=== PATIENT | female | born 1975 | race Caucasian/White ===

== ENCOUNTER → 2024-10-03 07:14 | Outpatient (REF) | payer BC, SELFPAY | LOC: HWRAD 07:14 | PROVIDERS: ATTENDING PHYSICIAN Physician Assistant Medical | DX: D48.9 Neoplasm of uncertain behavior, unspecified (principal) | CPT/HCPCS: 76604 ==

== ENCOUNTER 2024-11-10 06:01 | Day surgery (SDC) | payer BC, SELFPAY ==
[2024-11-10 06:21] VITALS: BP 119/78
[2024-11-10 06:22] VITALS: BMI 27.2
[2024-11-10 06:23] VITALS: BMI 27.2
[2024-11-10] MEDS: TYLENOL 1000 MG PO (06:27)
[2024-11-10] MEDS: NORMOSOL-R/PLASMALYTE-A 1000 IV (06:42)
[2024-11-10] MEDS: HEPARIN 5000 UNITS SC (06:44)
[2024-11-10 07:51] VITALS: BP 133/75
[2024-11-10 08:01] VITALS: BP 91/77
--- NOTE | 2024-11-10 08:06 | OR.RPT ---
Addendum entered and electronically signed by Dagoberto Aguilera MD 11/10/24 09:48:
The assistance of Chin PARADA was required due to the complexity of the procedure. During the procedure she assisted with retraction, resection, and closure of the wound.
Original Note:
Operative Report
Operative Report
Primary Surgeon: Ale
Assisting: Chin PARADA
Pre-op Diagnosis: Back lipoma
Post-op Diagnosis: Same
Procedure Performed: Excision of back lipoma
Anesthesia Type: MAC local
Specimen / Cultures: Lipoma
Estimated Blood Loss: 2cc
Complications: None immediate
Operative Findings: 6cm x 6cm x 2cm lipoma overlying the muscle, benign appearing
Date of Surgery: 11/10/24
Indications: This 48F developed a symptomatic right upper back lipoma and excision was elected. The site was marked together with the patient in the preoperative area.
PROCEDURE: After informed consent was obtained, the patient was brought to the operative suite and placed left lateral decubitus on the operating table. The patient was sedated, prepped and draped in the usual sterile manner and an adequate local
anesthetic was administered using lidocaine 1% with epinephrine.
A full thickness elliptical incision was made over the mass with a #15 blade and carried down to the capsule with electrocautery. The lipoma was freed from surrounding structures with blunt dissection and electrocautery. The deep layer was gently
adherent to the muscle. The lipoma was totally freed and passed off the table as specimen in one piece. The wound was then irrigated with copious sterile saline, and hemostasis was obtained using electrocautery. The skin was approximated with 3-0
Vicryl deep dermal interrupted sutures and 4-0 monocryl suture in a subcuticular fashion. Topical skin glue was then applied. All surgical counts were reported as correct.
The patient tolerated the procedure well and was taken to the PACU in stable condition.
[2024-11-10 08:12] VITALS: BP 113/87
[2024-11-10 08:15] VITALS: BP 129/84
[2024-11-10 08:19] VITALS: BP 118/74
== END 2024-11-10 08:30 | disposition home or self-care (01) ==
LOC: SDS 06:01
PROVIDERS: ATTENDING PHYSICIAN Surgery
DX: D17.1 Benign lipomatous neoplasm of skin and subcutaneous tissue of trunk (principal)
CPT/HCPCS: 11406; 88304

== ENCOUNTER 2025-02-02 19:36 | Emergency (ER) | payer BC, SELFPAY ==
[2025-02-02 19:39] VITALS: BP 132/80
[2025-02-02 20:01] LABS: % Basophils 0.5 % (0-2); % Eosinophils 1.9 % (0-6); % Immature Granulocytes 0.2 % (0-0.5); % Lymphocytes 27.5 % (20.5-51.1); % Monocytes 6.9 % (1.7-9.3); Absolute Eosinophils 0.2 10^3/uL (0-0.7); Absolute Lymphocytes 2.3 10^3/uL (1.2-3.4); Absolute Monocytes 0.6 10^3/uL (0.1-0.6); Absolute Neutrophils 5.3 10^3/uL (1.4-6.5); Hematocrit 37.1 % (37.0-47.0); Hemoglobin 12.8 g/dL (12.0-16.0); Mean Corp Hgb Conc. 34.5 g/dL (33.0-37.0); Mean Corpuscular Hgb 29.8 pg (27.0-31.0); Mean Corpuscular Volume 86.5 fL (81.0-99.0); Mean Platelet Volume 9.8 fL (7.4-10.4); Nucleated Red Blood Cells % 0 %; Platelet Count 264 10^3/uL (130-400); Red Blood Cell Count 4.29 10^6/uL (4.20-5.40); Red Cell Dist. Width 12.4 % (11.5-14.5); White Blood Cell Count 8.4 10^3/uL (4.8-10.8)
[2025-02-02 20:13] LABS: HCG, Serum Qualitative Screen Negative
[2025-02-02 20:20] LABS: ALT (SGPT) 16 U/L (0-35); AST (SGOT) 20 U/L (14-36); Albumin 4.5 g/dl (3.5-5.0); Alkaline Phosphatase 63 U/L (38-126); Blood Urea Nitrogen 18 mg/dl (7-17); Calcium 9.3 mg/dl (8.4-10.2); Carbon Dioxide 25 mmol/L (22-30); Chloride 108 mmol/L (98-107); Glucose 108 mg/dl (70-99); Potassium 4.3 mmol/L (3.5-5.1); Sodium 139 mmol/L (135-145); Total Bilirubin 0.9 mg/dl (0.2-1.3); Total Protein 7.3 g/dl (6.3-8.2); eGFR > 60.00
--- NOTE | 2025-02-02 20:38 | ED.GENMED ---
History of Present Illness
General
Chief Complaint: Vaginal Bleeding
Source: patient
Exam Limitations: none
Time Seen by Provider: 02/02/25 20:37
History of Present Illness
History of Present Illness:
49yoF with no significant past medical history presenting via EMS for evaluation of vaginal bleeding. Patient started her menstrual period yesterday. Her periods are typically pretty light. She suddenly started to have heavy vaginal bleeding this
evening and blood through a tampon within an hour. She started to feel lightheaded and her heart rate spiked so she called EMS. Bleeding has now subsided. She changed her pad about 2 hours ago and pad is only about 1/3 saturated. Patient does
not take any blood thinners. Of note, patient was seen by her PCP yesterday for palpitations and elevated heart rate. She currently has a Holter monitor on and is scheduled to have an echocardiogram and stress test in 3 days.
Past History
Past History
ED Past Medical History: None
ED Past Surgical History: Gynecological
Social History
Tobacco: Non-smoker
Phy Exam
General Physical Exam
General Presentation: well appearing and no apparent distress
General Skin: warm and dry
General Habitus: normal
General Mental: alert
ENT Exam
ENT Exam: normocephalic
Cardiovascular Exam
Cardiovascular Exam: regular rate/rhythm
Pulmonary Exam
Pulmonary Exam: no respiratory distress
Genitourinary Exam Female
Exam Female: other (Small amount of vaginal bleeding on speculum exam. No clots.)
Neurological Exam
Neurological Exam: alert
Gabriella Coma Scale
Eye Opening: Spontaneous
Verbal Response: Oriented
Motor Response: Obeys Commands
GCS Total Score: 15
Skin Exam
Skin Exam: normal color and warm/dry
Psychiatric Exam
Psychiatric Exam: normal mood/affect
Course
Orders/Labs/Results
Orders:
Orders
02/02/25 19:41
Electrocardiogram (*1) Urgent
Reason for Study: Vertigo / Dizzy
02/02/25 19:42
EKG- Treatment ONCE
Test Result ONCE
02/02/25 19:53
Type+Screen Urgent
Complete Blood Count/With Diff Urgent
Comprehensive Metabolic Panel Urgent
HCG, Serum Qualitative Screen Urgent
Magnesium Urgent
Comment: ADD ON
TSH Urgent
Comment: ADD ON
02/02/25 20:52
Add On- LAB Urgent
Comments:: add on
Tests Added?: TSH and magnesium
02/02/25 20:57
Pelvis & Transvaginal US [US Pelvis W Transvag Combined] Urgent
Comment:
Reason For Exam: Vaginal bleeding
Abnormal Lab Results
02/02/25
19:53
Chloride 108 H mmol/L
(98-107)
BUN 18 H mg/dl
(7-17)
Creatinine 1.1 H mg/dL
(0.6-1.0)
Glucose 108 H mg/dl
(70-99)
02/02/25 19:53
02/02/25 19:53
Vital Signs
Initial and Last Documented VS:
Initial Vital Signs
Temp Pulse Resp BP Pulse Ox
98.2 F 89 16 132/80 98
02/02/25 19:39 02/02/25 19:39 02/02/25 19:39 02/02/25 19:39 02/02/25 19:39
Last Documented Vital Signs
Temp Pulse Resp BP Pulse Ox
98.2 F 79 18 124/88 96
02/02/25 19:39 02/02/25 23:08 02/02/25 23:08 02/02/25 23:06 02/02/25 23:05
MDM/Problems Addressed
Differential Diagnosis Includes:
49yoF here with heavy vaginal bleeding that started suddenly this evening. Went through 1 pad in an hour. HR spiked and she called EMS. Bleeding has tapered off significantly and she is feeling much better. VSS. She is well appearing in no distress.
Only a small amount of vaginal bleeding on speculum exam. Differential diagnosis includes but is not limited to: perimenopause, menorrhagia, anemia, thyroid dysfunction
Initial ED plan: Labs obtained in triage. Hemoglobin is 12.8 and HCG negative. Will add on TSH and check pelvic ultrasound.
*EKG
Interpreted by ED Provider?: Yes
EKG Intrepretation Date: 02/02/25
Heart Rate: 83
Rate: normal
Rhythm: sinus
[place]: normal axis
Interval: normal interval
Ischemia: no ischemia
*Critical Care Note
Total Time (30-74mins, 75-104mins- exclusive of procedures): Not Applicable
Update Note
Update Note:
TSH within normal limits. Pelvic ultrasound negative for acute findings. Patient in ED for 3+ hours and still has not saturated through the pad that she came in with. PVCs noted on monitor and patient currently has Holter monitor in place. She is
stable for discharge. Advised f/u with PCP and OBGYN. ED return precautions reviewed.
ED Attending Note
-
Portions of this chart may have been created with voice recognition software.� Occasional wrong word or��sound alike� substitutions may have occurred due to the inherent limitations of voice recognition software.
Discharge Plan
Departure
Patient Disposition: Home (Routine Discharge)
Date of Disposition: 02/02/25
Time of Disposition: 22:41
Patient with high blood pressure during this ER visit?: No
Discharge Problem:
Vaginal bleeding
Instructions: Heavy Periods (DC)
Prescriptions:
No Action
acetaminophen [Tylenol] 325 mg Tablet
650 mg PO Q4H PRN (Reason: pain)
loperamide 2 mg Capsule
2 mg PO Q4H PRN (Reason: diarrhea)
Referrals:
Rhiannon Read MD [Active, Gynecology]
Kaur Cuello PA-C [Family Provider, Family Practice]
Activity Restrictions/Additional Instructions:
Please follow-up with your family doctor and manager of software. Return to the ER with any worsening symptoms including passing out or if you bleed through >2 pads/hour for >2 hours.
Interventions
Interventions:
*Risk Screen - Suicide Last Done: 02/02/25 19:42
*General Assessment Last Done: 02/02/25 20:48
*Neglect/Abuse Screening Last Done: 02/02/25 19:42
*ED- Fall Risk Assessment Last Done: 02/02/25 20:48
*ED COVID-19 Vaccine History Last Done: 02/02/25 20:48
*Nursing Disposition Last Done: 02/02/25 23:09
ED-Female Genitourinary Assessment Last Done: 02/02/25 20:56
Discharge Date and Time
Discharge Date/Time: 02/02/25 23:09
Print Language: JAPANESE
[2025-02-02 20:42] VITALS: BP 131/93
[2025-02-02 21:28] LABS: Magnesium 2.1 mg/dl (1.6-2.3)
[2025-02-02 21:37] VITALS: BP 132/96
[2025-02-02 23:06] VITALS: BP 124/88
== END 2025-02-02 23:09 | disposition home or self-care (01) ==
LOC: EMR 19:36
PROVIDERS: Emergency Medicine; EMERGENCY PHYSICIAN Emergency Medicine; FAMILY PHYSICIAN Physician Assistant Medical
DX: N93.9 Abnormal uterine and vaginal bleeding, unspecified (principal); R42 Dizziness and giddiness
CPT/HCPCS: 99284; 76830; 76856; 80053; 83735; 84443; 84703; 85025; 86850; 86900; 86901; 93005